=== PATIENT | female | born 1960 | race Caucasian/White ===

== ENCOUNTER → 2018-04-09 13:02 | Outpatient (CLI) | payer OTHER, SELFPAY ==
[2018-04-09 14:13] LABS: Hematocrit 40.7 % (37-47); Mean Corp Hgb Conc 31.9 g/gl (32-36); Mean Corpuscular Hgb 30.6 pg (27.0-32.0); Mean Corpuscular Volume 95.8 fL (81-99); Platelet Count 295 K/mm3 (150-450); RBC Distribution Width CV 13.8 % (11.6-14.6); RBC Distribution Width SD 47.9 fl (35.1-43.9); Red Blood Count 4.25 M/mm3 (4.2-5.4); Scan Indicated on CBC? Y/N NO; White Blood Count 5.9 K/mm3 (4.4-11.0)
[2018-04-09 14:45] LABS: Homocysteine 8.6 umol/L (3.2-10.7)
[2018-04-09 14:51] LABS: Progesterone Level 0.75 ng/mL (See Comment); Vitamin B12 1117 pg/mL (211-911); Vitamin D,25 Hydroxy 128.6 ng/mL (29.95-100.01)
[2018-04-09 15:24] LABS: ALB/GLOB Ratio 1.1 RATIO (0.9-2.4); AST(SGOT) 19 U/L (15-37); Alanine Aminotransfer ALT/SGPT 31 U/L (13-56); Albumin, Serum 4.1 g/dL (3.2-5.0); Alkaline Phosphatase 72 U/L (45-117); Anion Gap 5 (5-15); BUN 15 mg/dL (7-18); BUN/Creat Ratio 15.2 RATIO (10-20); CRP, High Sensitivity Cardiac 0.27 mg/L; Calcium,Total 9.2 mg/dL (8.5-10.1); Chloride 105 mmol/L (98-107); Cholesterol 217 mg/dL (200); Creatinine, Serum 0.99 mg/dL (0.55-1.02); EST Glomerular Filtration Rate 61 mL/min (>60); Est Glom Filt Rate - Afr Amer 74 mL/min (>60); Estradiol < 11.0 pg/mL; Follicle Stimulating Hormone 108.5 mIU/mL; Free T3 2.1 pg/mL (2.18-3.98); Globulin 3.6 g/dL (2.2-4.2); Glucose 70 mg/dL (74-106); High Density Lipoprotein 94 mg/dL; Iron 85 ug/dL (50-170); Luteinizing Hormone 31.3 mIU/mL; Magnesium 2.4 mg/dL (1.6-2.6); Potassium 3.9 mmol/L (3.5-5.1); Prolactin 9.1 ng/mL; Protein, Total 7.7 g/dL (6.4-8.2); Sodium Level 140 mmol/L (136-145); T4 Total, Thyroxin 9.8 ug/dL (4.8-13.9); Thyroid Stim Hormone (TSH) 1.78 uIU/mL (0.358-3.74); Triglycerides 98 mg/dL; Very Low Density Lipoprotein 20 mg/dL (5-40)
[2018-04-09 15:32] LABS: Hemoglobin A1c 6.3 % (4.2-6.3)
[2018-04-12 20:06] LABS: DHEA Sulfate 67.1 ug/dL (29.4-220.5); Insulin Like Growth Factor 126 ng/mL (46-172); Testosterone, % Free 1.29 % (0.50-2.80); Testosterone, Free 0.09 ng/dL (0.10-0.85); Testosterone, Total 7 ng/dL (3-41)
[2018-04-13 11:26] LABS: Sex Hormone-binding Globulin 96.1 nmol/L (17.3-125.0)
--- OUTSIDE RECORDS SUMMARY | 2018-06-14 09:35 | XMS RPT_ITS ---
:1960 Author Organization OHIP Care Team Providers Name Role Phone CURRY LUNSFORD PARMJITIR Attending Unavailable MANSOUR, LUNSFORD MONIR Referring Unavailable MANSOUR, LUNSFORD MONIR Referring Unavailable MANSOUR, LUNSFORD MONIR Referring Unavailable MANSOUR, LUNSFORD MONIR Referring Unavailable MANSOUR, LUNSFORD MONIR Referring Unavailable MANSOUR, LUNSFORD MONIR Referring Unavailable MANSOUR, LUNSFORD MONIR Referring Unavailable MANSOUR, LUNSFORD MONIR Referring Unavailable MANSOUR, LUNSFORD MONIR Referring Unavailable MANSOUR, LUNSFORD MONIR Attending Unavailable ANDRE MCDANIEL Attending Unavailable ANDRE MCDANIEL Referring Unavailable Christopher Flood Primary Care Unavailable MANSOUR, LUNSFORD M Attending Unavailable [facility] Referring Unavailable MANSOUR, LUNSFORD M Attending Unavailable [facility] Referring Unavailable MANSOUR, LUNSFORD M Referring Unavailable MANSOUR, LUNSFORD M Referring Unavailable MANSOUR, LUNSFORD M Referring Unavailable MANSOUR, LUNSFORD M Referring Unavailable MANSOUR, LUNSFORD M Referring Unavailable MANSOUR, LUNSFORD M Referring Unavailable MANSOUR, LUNSFORD M Referring Unavailable MANSOUR, LUNSFORD M Referring Unavailable MANSOUR, LUNSFORD M Referring Unavailable MANSOUR, LUNSFORD M Referring Unavailable MANSOUR, LUNSFORD M Attending Unavailable [facility] Referring Unavailable MANSOUR, LUNSFORD M Attending Unavailable MANSOUR, LUNSFORD M Referring Unavailable PROBLEMS PROBLEMS DATE TYPE CONDITION / CODE ATTENDING STATUS SOURCE 04/11/2018 Unknown R53.82 - Chronic ANDRE MCDANIEL Active [place] fatigue, Community unspecified / Hospital R53.82(ICD-10) Repository 04/11/2018 Unknown M62.81 - Muscle ANDRE MCDANIEL Active [place] weakness Community (generalized) / Hospital M62.81(ICD-10) Repository 12/10/2017 Admitting Unknown / NA Active [facility] Repository 10/15/2017 Active Unknown / CORY CHRISTIAN Active [facility] UNK(Unknown) MONIR Other [place] Repository PROCEDURES PROCEDURES No Procedure Records FoundRESULTS RESULTS CBC-COMPLETE BLOOD CNT Collected: 04/09/2018 Status: F Source: [place] NO DIFF 1:14 PM [facility] REPOSITORY TYPE CODE TESTS RESULT OUT OF RANGE REFERENCE UNITS LAB L100.1000 4.4-11.0 K/mm3 Normal WBC 5.9 LAB L100.1200 4.2-5.4 M/mm3 Normal RBC 4.25 LAB L100.1300 12.0-15.0 g/dl Normal HGB 13.0 LAB L100.1400 37-47 % Normal HCT 40.7 LAB L100.1500 81-99 fL Normal MCV 95.8 LAB L100.1600 27.0-32.0 pg Normal MCH 30.6 LAB L100.1700 32-36 g/gl Low MCHC 31.9 LAB L100.1810 11.6-14.6 % Normal RDW CV 13.8 LAB L100.1820 35.1-43.9 fl High RDW SD 47.9 LAB L100.1900 150-450 K/mm3 Normal PLT 295 LAB L100.2000 6.2-12.0 fl Normal MPV 10.0 Performed By: #### L100.0500 #### [facility] [address] [place], [place], [address] HOMOCYSTEINE Collected: 04/09/2018 Status: F Source: [place] 1:14 PM [facility] REPOSITORY TYPE CODE TESTS RESULT OUT OF REFERENCE UNITS RANGE LAB L503.8001 3.2-10.7 umol/L HOMOCYSTEINE Normal 8.6 Performed By: #### L503.8001 #### [facility] [address] [place], [address] VITAMIN B12 Collected: 04/09/2018 Status: F Source: [place] 1:14 PM [facility] REPOSITORY Order Comment: BASELINE OR POST MEDICATION STIMULATION?: Baseline Comments: PREGNENOLONE [id number] SERUM FROZEN TYPE CODE TESTS RESULT OUT OF REFERENCE UNITS RANGE LAB L503.0105 211-911 pg/mL High Vitamin B12 1117 Performed By: #### L503.0105, L506.1000, L509.4001, L509.6000 #### [facility] [address] [place], [address] VITAMIN D,25 HYDROXY Collected: 04/09/2018 Status: F Source: [place] 1:14 PM [facility] REPOSITORY Order Comment: BASELINE OR POST MEDICATION STIMULATION?: Baseline Comments: PREGNENOLONE [id number] SERUM FROZEN TYPE CODE TESTS RESULT OUT OF REFERENCE UNITS RANGE LAB L506.1000 29.95-100.01 ng/mL High Vitamin D 128.6 25-OH Result Comment: Vitamin D 25(OH) Status Range Deficiency <20 ng/mL (50nmol/L) Insuffciency 20 - 30 ng/mL (50 - 75 nmol/L) Sufficiency 30 - 100 ng/mL (75 - 250 nmol/L) Toxicity >100 ng/mL (>250 nmol/L) Evidence suggests that patients undergoing fluorescein dye angiography can retain small amounts of fluorescein in the body for up to 48 to 72 hours post-treatment. In the cases of patients with renal insufficiency, retention could be much longer. Samples containing fluorescein can produce falsely elevated values when tested with the Advia Centaur Vitamin D assay. With fluorescein interference, observed Vitamin D values can be as high as >150 ng/mL (>375 nmol/L). Samples should be resubmitted post fluorescein clearance to ensure there is no interference with Vitamin D test results. Performed By: #### L503.0105, L506.1000, L509.4001, L509.6000 #### [facility] [address] [place], [address] PROGESTERONE LEVEL Collected: 04/09/2018 Status: F Source: [place] 1:14 PM [facility] REPOSITORY Order Comment: BASELINE OR POST MEDICATION STIMULATION?: Baseline Comments: PREGNENOLONE [id number] SERUM FROZEN TYPE CODE TESTS RESULT OUT OF REFERENCE UNITS RANGE LAB L509.4001 See Comment ng/mL Progesterone Normal 0.75 Result Comment: Progesterone Reference Table: UNITS Female: Follicular 0.15 - 1.40 ng/mL Luteal 3.34 - 25.56 ng/mL Mid-luteal 4.44 - 28.03 ng/mL Postmenopausal 0.0 - 0.73 ng/mL : 1st Trimester 11.22 - 90.00 ng/mL 2nd Trimester 25.55 - 89.40 ng/mL 3rd Trimester 48.40 -422.50 ng/mL Performed By: #### L503.0105, L506.1000, L509.4001, L509.6000 #### [facility] [address] [place], [address] CORTISOL SERUM Collected: 04/09/2018 Status: F Source: [place] 1:14 PM [facility] REPOSITORY Order Comment: BASELINE OR POST MEDICATION STIMULATION?: Baseline Comments: PREGNENOLONE [id number] SERUM FROZEN TYPE CODE TESTS RESULT OUT OF RANGE REFERENCE UNITS LAB L509.6000 3.09-22.40 ug/dL Normal CORTISOL 9.50 Result Comment: Adult (AM) 4.30 - 22.40 ug/dL Adult (PM) 3.09 - 16.66 ug/dL Performed By: #### L503.0105, L506.1000, L509.4001, L509.6000 #### [facility] [address] [facility] [place], [place], [address] COMPREHENSIVE METABOLIC Collected: 04/09/2018 Status: F Source: [facility] 1:14 PM [facility] REPOSITORY Order Comment: PATIENT NOT FASTING Has Patient had X-rays with Contrast this admission? N Comments: PREGNENOLONE [id number] SERUM FROZEN Is Patient Taking Vitamins or Folic Acid Supplements? N TYPE CODE TESTS RESULT OUT OF RANGE REFERENCE UNITS LAB L501.0100 74-106 mg/dL Low GLU 70 Result Comment: Please note revised GLUCOSE reference range effective 2017. LAB L501.1000 7-18 mg/dL Normal BUN 15 LAB L501.1100 0.55-1.02 mg/dL Normal CREAT,SERUM 0.99 Result Comment: The validity of the calculated GFR AND GFRAA in patients over 70 years has not been determined. Clinical correlation is essential. LAB L501.1110 >60 mL/min Normal EST GFR 61 Result Comment: Non- GFR Calc LAB L501.1115 >60 mL/min Normal EST GFR - AA 74 Result Comment: GFR Calc LAB L501.1300 10-20 RATIO Normal BUN/CRE 15.2 LAB L501.1500 6.4-8.2 g/dL T Normal PROT 7.7 LAB L501.1800 3.2-5.0 g/dL Normal ALB 4.1 LAB L501.1950 2.2-4.2 g/dL Normal GLOB 3.6 LAB L501.2000 0.9-2.4 RATIO Normal A/G 1.1 LAB L501.2200 8.5-10.1 mg/dL CA Normal 9.2 LAB L501.4100 15-37 U/L Normal AST 19 LAB L501.4305 45-117 U/L Normal ALK P 72 LAB L501.4405 13-56 U/L Normal ALT 31 LAB L501.4600 0.20-1.00 mg/dL T Normal BILI 0.50 LAB L501.5300 136-145 mmol/L NA Normal 140 LAB L501.5600 3.5-5.1 mmol/L K Normal 3.9 LAB L501.5900 98-107 mmol/L CL Normal 105 LAB L501.6100 21.0-32.0 mmol/L Normal CO2 30.0 LAB L501.6200 5-15 Normal GAP 5 Performed By: #### L500.4050, L500.4100, L501.5200, L501.6750, L501.89828, L501.9310, L501.9520, L503.6150, L506.0250, L3100.5125, L3100.5170, L3100.5420, L3300.1750 #### [facility] [address] [place], [place], [id number] LIPID PROFILE Collected: 04/09/2018 Status: F Source: [place] 1:14 PM [facility] REPOSITORY Order Comment: PATIENT NOT FASTING Has Patient had X-rays with Contrast this admission? N Comments: PREGNENOLONE [id number] SERUM FROZEN Is Patient Taking Vitamins or Folic Acid Supplements? N TYPE CODE TESTS RESULT OUT OF RANGE REFERENCE UNITS LAB L501.4900 200 mg/dL High CHOL 217 Result Comment: <200 mg/dL Desirable 200-240 mg/dL Borderline >240 mg/dL High Risk LAB L501.5000 mg/dL Normal TRIG 98 Result Comment: The drugs N-Acetylcysteine and Metamizole may falsely depress this assay. Serum Triglycerides Reference Interval Normal <150 mg/dL Borderline high 150 - 199 mg/dL High 200 - 499 mg/dL Very High > or = 500 mg/dL LAB L501.6400 mg/dL Normal HDL 94 Result Comment: The drugs N-Acetylcysteine and Metamizole may falsely depress this assay. Reference Range HDL <40 mg/dL Low HDL Cholesterol HDL >or= 60 mg/dL High HDL Cholesterol LAB L501.6500 0-130 mg/dL Normal LDL 103 LAB L501.6600 5-40 mg/dL Normal VLDL 20 Performed By: #### L500.4050, L500.4100, L501.5200, L501.6750, L501.59195, L501.9310, L501.9520, L503.6150, L506.0250, L3100.5125, L3100.5170, L3100.5420, L3300.1750 #### [facility] [address] [place], [place], [id number] MAGNESIUM Collected: 04/09/2018 Status: F Source: [place] 1:14 PM [facility] REPOSITORY Order Comment: PATIENT NOT FASTING Has Patient had X-rays with Contrast this admission? N Comments: PREGNENOLONE [id number] SERUM FROZEN Is Patient Taking Vitamins or Folic Acid Supplements? N TYPE CODE TESTS RESULT OUT OF RANGE REFERENCE UNITS LAB L501.5200 1.6-2.6 mg/dL Normal MG 2.4 Performed By: #### L500.4050, L500.4100, L501.5200, L501.6750, L501.39833, L501.9310, L501.9520, L503.6150, L506.0250, L3100.5125, L3100.5170, L3100.5420, L3300.1750 #### [facility] [address] [place], [place], [id number] CRP, HIGH SENSITIVITY Collected: 04/09/2018 Status: F Source: [place] CARDIAC 1:14 PM [facility] REPOSITORY Order Comment: PATIENT NOT FASTING Has Patient had X-rays with Contrast this admission? N Comments: PREGNENOLONE [id number] SERUM FROZEN Is Patient Taking Vitamins or Folic Acid Supplements? N TYPE CODE TESTS RESULT OUT OF RANGE REFERENCE UNITS LAB L501.6750 mg/L Normal CRP HIGH 0.27 SENS Result Comment: Low Relative Risk of CVD <1.0 mg/L Average Relative Risk of CVD 1.0 - 3.0 mg/L High Relative Risk of CVD >3.0 mg/L Performed By: #### L500.4050, L500.4100, L501.5200, L501.6750, L501.03210, L501.9310, L501.9520, L503.6150, L506.0250, L3100.5125, L3100.5170, L3100.5420, L3300.1750 #### [facility] [address] [place], [place], [id number] FREE T3 Collected: 04/09/2018 Status: F Source: [place] 1:14 PM [facility] REPOSITORY Order Comment: PATIENT NOT FASTING Has Patient had X-rays with Contrast this admission? N Comments: PREGNENOLONE [id number] SERUM FROZEN Is Patient Taking Vitamins or Folic Acid Supplements? N TYPE CODE TESTS RESULT OUT OF RANGE REFERENCE UNITS LAB L501.04915 2.18-3.98 pg/mL Low FREE T3 2.1 Performed By: #### L500.4050, L500.4100, L501.5200, L501.6750, L501.68014, L501.9310, L501.9520, L503.6150, L506.0250, L3100.5125, L3100.5170, L3100.5420, L3300.1750 #### [facility] [address] [place], [place], [id number] T4 TOTAL, THYROXIN Collected: 04/09/2018 Status: F Source: [place] 1:14 PM [facility] REPOSITORY Order Comment: PATIENT NOT FASTING Has Patient had X-rays with Contrast this admission? N Comments: PREGNENOLONE [id number] SERUM FROZEN Is Patient Taking Vitamins or Folic Acid Supplements? N TYPE CODE TESTS RESULT OUT OF RANGE REFERENCE UNITS LAB L501.9310 4.8-13.9 ug/dL T4 Normal THYROXIN 9.8 Performed By: #### L500.4050, L500.4100, L501.5200, L501.6750, L501.97221, L501.9310, L501.9520, L503.6150, L506.0250, L3100.5125, L3100.5170, L3100.5420, L3300.1750 #### [facility] [address] [facility]. [place], [place], [id number] THYROID STIM HORMONE Collected: 04/09/2018 Status: F Source: [place] (TSH) 1:14 PM [facility] REPOSITORY Order Comment: PATIENT NOT FASTING Has Patient had X-rays with Contrast this admission? N Comments: PREGNENOLONE [id number] SERUM FROZEN Is Patient Taking Vitamins or Folic Acid Supplements? N TYPE CODE TESTS RESULT OUT OF RANGE REFERENCE UNITS LAB L501.9520 0.358-3.74 uIU/mL Normal TSH 1.78 Performed By: #### L500.4050, L500.4100, L501.5200, L501.6750, L501.56173, L501.9310, L501.9520, L503.6150, L506.0250, L3100.5125, L3100.5170, L3100.5420, L3300.1750 #### [facility] [address] [facility] [place], [place], [address] IRON Collected: 04/09/2018 Status: F Source: [place] 1:14 PM [facility] REPOSITORY Order Comment: PATIENT NOT FASTING Has Patient had X-rays with Contrast this admission? N Comments: PREGNENOLONE [id number] SERUM FROZEN Is Patient Taking Vitamins or Folic Acid Supplements? N TYPE CODE TESTS RESULT OUT OF RANGE REFERENCE UNITS LAB L503.6150 50-170 ug/dL Normal IRON 85 Performed By: #### L500.4050, L500.4100, L501.5200, L501.6750, L501.48561, L501.9310, L501.9520, L503.6150, L506.0250, L3100.5125, L3100.5170, L3100.5420, L3300.1750 #### [facility] [address] [place], [place], [id number] FOLATES, (FOLIC ACID) Collected: 04/09/2018 Status: F Source: [place] 1:14 PM [facility] REPOSITORY Order Comment: PATIENT NOT FASTING Has Patient had X-rays with Contrast this admission? N Comments: PREGNENOLONE [id number] SERUM FROZEN Is Patient Taking Vitamins or Folic Acid Supplements? N TYPE CODE TESTS RESULT OUT OF RANGE REFERENCE UNITS LAB L506.0250 3.1-55.4 ng/mL Normal FOLATES 30.40 Performed By: #### L500.4050, L500.4100, L501.5200, L501.6750, L501.46971, L501.9310, L501.9520, L503.6150, L506.0250, L3100.5125, L3100.5170, L3100.5420, L3300.1750 #### [facility] [address] [place], [place], [id number] FOLLICLE STIMULATING Collected: 04/09/2018 Status: F Source: [place] HORMONE 1:14 PM [facility] REPOSITORY Order Comment: PATIENT NOT FASTING Has Patient had X-rays with Contrast this admission? N Comments: PREGNENOLONE [id number] SERUM FROZEN Is Patient Taking Vitamins or Folic Acid Supplements? N TYPE CODE TESTS RESULT OUT OF RANGE REFERENCE UNITS LAB L3100.5125 mIU/mL Normal FSH 108.5 Result Comment: NORMAL REFERENCE RANGES FEMALE FOLLICULAR 2.3 - 12.6 mIU/mL MID-CYCLE PEAK 5.2 - 17.5 mIU/mL LUTEAL 1.7 - 12.9 mIU/mL POST-MENOPAUSAL ON MHT 5.9 - 72.8 mIU/mL NOT ON MHT 12.7 - 132.2 mlU/mL MALE 0.7 - 10.8 mIU/mL NEW TEST METHOD AND REFERENCE RANGES AUGUST 13, 2011 Performed By: #### L500.4050, L500.4100, L501.5200, L501.6750, L501.23542, L501.9310, L501.9520, L503.6150, L506.0250, L3100.5125, L3100.5170, L3100.5420, L3300.1750 #### [facility] [address] [place], [place], [id number] LUTEINIZING HORMONE Collected: 04/09/2018 Status: F Source: [place] 1:14 PM [facility] REPOSITORY Order Comment: PATIENT NOT FASTING Has Patient had X-rays with Contrast this admission? N Comments: PREGNENOLONE [id number] SERUM FROZEN Is Patient Taking Vitamins or Folic Acid Supplements? N TYPE CODE TESTS RESULT OUT OF RANGE REFERENCE UNITS LAB L3100.5170 mIU/mL Normal LH 31.3 Result Comment: NORMAL REFERENCE RANGES FEMALE FOLLICULAR 1.9 - 26.2 mIU/mL MID-CYCLE PEAK 22.8 - 76.1 mIU/mL LUTEAL 0.6 - 16.6 mIU/mL POST-MENOPAUSAL ON MHT 1.1 - 52.4 mIU/mL NOT ON MHT 8.6 - 61.8 mIU/mL MALE 1.2 - 10.6 mIU/mL NEW TEST METHOD AND REFERENCE RANGES AUGUST 13, 2011 Performed By: #### L500.4050, L500.4100, L501.5200, L501.6750, L501.01271, L501.9310, L501.9520, L503.6150, L506.0250, L3100.5125, L3100.5170, L3100.5420, L3300.1750 #### [facility] [address] [place], [place], [address] PROLACTIN Collected: 04/09/2018 Status: F Source: [place] 1:14 PM [facility] REPOSITORY Order Comment: PATIENT NOT FASTING Has Patient had X-rays with Contrast this admission? N Comments: PREGNENOLONE [id number] SERUM FROZEN Is Patient Taking Vitamins or Folic Acid Supplements? N TYPE CODE TESTS RESULT OUT OF RANGE REFERENCE UNITS LAB L3100.5420 ng/mL Normal PROLACTIN 9.1 Result Comment: NORMAL REFERENCE RANGES FEMALE NON- 2.2 - 30.3 ng/mL 8.1 - 347.6 ng/mL POST-MENOPAUSAL 0.7 - 31.5 ng/mL MALE 2.5 - 17.4 ng/mL NEW TEST METHOD AND REFERENCE RANGES AUGUST 13, 2011 Performed By: #### L500.4050, L500.4100, L501.5200, L501.6750, L501.74871, L501.9310, L501.9520, L503.6150, L506.0250, L3100.5125, L3100.5170, L3100.5420, L3300.1750 #### [facility] [address] [place], [place], [id number] ESTRADIOL Collected: 04/09/2018 Status: F Source: [place] 1:14 PM [facility] REPOSITORY Order Comment: PATIENT NOT FASTING Has Patient had X-rays with Contrast this admission? N Comments: PREGNENOLONE [id number] SERUM FROZEN Is Patient Taking Vitamins or Folic Acid Supplements? N TYPE CODE TESTS RESULT OUT OF RANGE REFERENCE UNITS LAB L3300.1750 pg/mL Normal ESTRADIOL < 11.0 Result Comment: NORMAL REFERENCE RANGES FEMALE FOLLICULAR 21.4 - 164.8 pg/mL MID-CYCLE PEAK 49.9 - 367.2 pg/mL LUTEAL 40.2 - 259.0 pg/mL POST-MENOPAUSAL ON MHT <11.0 - 462.1 pg/mL NOT ON MHT <11.0 - 58.3 pg/mL MALE <11.0 - 52.5 pg/mL NOTE: [facility] HAS CONFIRMED THE DRUG FULVETRANT (FASLODEX) MAY CAUSE FALSELY ELEVATED ESTRADIOL RESULTS WHEN USING THIS TEST METHOD. IF PATIENT IS TAKING FULVESTRANT AN ALTERNATIVE METHOD SHOULD BE USED TO DETERMINE ESTRADIOL CONCENTRATION. Performed By: #### L500.4050, L500.4100, L501.5200, L501.6750, L501.66060, L501.9310, L501.9520, L503.6150, L506.0250, L3100.5125, L3100.5170, L3100.5420, L3300.1750 #### [facility] [address] [place], [place], [address] HEMOGLOBIN A1C Collected: 04/09/2018 Status: F Source: [place] 1:14 PM [facility] REPOSITORY TYPE CODE TESTS RESULT OUT OF RANGE REFERENCE UNITS LAB L501.9985 4.2-6.3 % Normal HGB A1C 6.3 Performed By: #### L501.9985 #### [place] [facility] [place], [address] SEX HORMONE-BINDING Collected: 04/09/2018 Status: F Source: [place] GLOBULIN 1:14 PM [facility] REPOSITORY Order Comment: Has Patient had X-rays with Contrast this admission? N Comments: PREGNENOLONE [id number] SERUM FROZEN Has Patient had Radioactive Injection for X-ray?: N TYPE CODE TESTS RESULT OUT OF RANGE REFERENCE UNITS LAB L3100.5060 17.3-125.0 nmol/L Normal SHBG 96.1 Result Comment: Performed at: [facility] [address] [id number] Roving Weight Gauger: Cuate Maguire PhD, Phone: [phone] Performed at: [facility] [id number] Roving Weight Gauger: Anthony Coats MD, Phone: [phone] Performed By: #### L3100.5060, L3100.5310, L3300.1500, L3400.1350 #### [facility] (refer to report for specific site) refer to report for address and phone number TESTOSTERONE, TOTAL / Collected: 04/09/2018 Status: F Source: [place] FREE 1:14 PM [facility] REPOSITORY Order Comment: Has Patient had X-rays with Contrast this admission? N Comments: PREGNENOLONE [id number] SERUM FROZEN Has Patient had Radioactive Injection for X-ray?: N TYPE CODE TESTS RESULT OUT OF RANGE REFERENCE UNITS LAB L3100.5320 3-41 ng/dL Normal TESTOSTER,TOTAL 7 LAB L3100.5340 0.10-0.85 ng/dL Low TESTOSTER,FREE 0.09 LAB L3100.5360 0.50-2.80 % Normal TESTOSTER %FREE 1.29 Performed By: #### L3100.5060, L3100.5310, L3300.1500, L3400.1350 #### [facility] (refer to report for specific site) refer to report for address and phone number DHEA SULFATE Collected: 04/09/2018 Status: F Source: [place] 1:14 PM [facility] RE[facility]ORY Order Comment: Has Patient had X-rays with Contrast this admission? N Comments: PREGNENOLONE [id number] SERUM FROZEN Has Patient had Radioactive Injection for X-ray?: N TYPE CODE TESTS RESULT OUT OF RANGE REFERENCE UNITS LAB L3300.1500 29.4-220.5 ug/dL Normal DHEA SULF 67.1 4020 Performed By: #### L3100.5060, L3100.5310, L3300.1500, L3400.1350 #### [facility] (refer to report for specific site) refer to report for address and phone number INSULIN LIKE GROWTH Collected: 04/09/2018 Status: F Source: [place] FACTOR 1:14 PM [facility] RE[facility]ORY Order Comment: Has Patient had X-rays with Contrast this admission? N Comments: PREGNENOLONE [id number] SERUM FROZEN Has Patient had Radioactive Injection for X-ray?: N TYPE CODE TESTS RESULT OUT OF RANGE REFERENCE UNITS LAB L3400.1350 46-172 ng/mL Normal INSULIN 126 [id number] Performed By: #### L3100.5060, L3100.5310, L3300.1500, L3400.1350 #### [facility] (refer to report for specific site) refer to report for address and phone number MISCELLANEOUS LAB Collected: 04/09/2018 Status: F Source: [place] PROCEDURE 1:14 PM [facility] RE[facility]ORY Order Comment: Comments: PREGNENOLONE [id number] SERUM FROZEN Test(s) Ordered: PREGNENOLONE [id number] SERUM FROZEN TYPE CODE TESTS RESULT OUT OF RANGE REFERENCE UNITS LAB L801.1541 Normal [facility] TEST Result Comment: TEST RESULT UNITS REF INTERVAL Pregnenolone, MS 39 ng/dL Reference Range: Adults: <151 TESTING PERFORMED AT [facility]. ORIGINAL REPORT ON FILE IN LAB CONTAINS ADDITIONAL TEST SITE INFORMATION. Performed By: #### L801.1541 #### [facility] [address] [place], [address] PROGRESS Observed: 01/14/2018 Status: COMPLETED Source: [place] 4:25 PM CLINIC OTHER CAMPUS REPOSITORY O ID: [id number] Author: Cory [facility] Service: (none) Author Type: Physician Type: Progress Notes Filed: 01/14/2018 4:32 PM Note Text: Perla Solorio is a 57 year old female who presents for medication follow-up with self only . SUBJECTIVE: I finished PHP/IOP on 01/03/18. Doing fair. Still struggling. Discussed marital issues and lack of communications. Sleep is fair. Anxiety is high. Avoiding conflict with . Children are supportive. Discussed current medications style. Denies suicidal ideations. She wishes that would consider going to a PHP. Denies alcohol or drugs. Stable medically. Current Outpatient Prescriptions: lamoTRIgine (LAMICTAL) 100 mg tablet Take 1 tablet by mouth once daily. venlafaxine ER (EFFEXOR XR) 150 mg 24 hr capsule Take 1 capsule by mouth once daily. No current facility-administered medications for this visit. Discussed medication dosage, usage, goals of therapy, and side effects. ALLERGIES No Known Allergies No past medical history on file. No past surgical history on file. ROS: Review of Systems Constitutional: Positive for activity change and unexpected weight change. Psychiatric/Behavioral: Positive for confusion. The patient is nervous/anxious and is hyperactive. Social History Marital status: Spouse name: Years of education: Number of children: Social History Main Topics Smoking status: Never Smoker Smokeless tobacco: Never Used Alcohol use: Yes Drug use: No Sexual activity: No OBJECTIVE: BP 130/85 Pulse 80 Resp 16 Neurologic Exam MENTAL STATUS EXAMINATION: Appearance: Casually dressed Behavior: Behaves appropriately during the encounter, Notable behaviors include anxiety Social relatedness: Angry, Anxious/Nervousness and Irritable Speech/Language:The patient demonstrates appropriate tone, prosody, yesi, phonetics, and syntax Mood: depressed anxiety. Affect: Restricted and Inappropriately intense Orientation: Person, Place, Time and Situation Associations: Intact and linear Thought Content: appropriate to situation and rejections to sensitivity. Hallucinations: None Delusions: None Suicidal Ideation: No suicidal ideation, intent or plan. Homicidal Ideation: No homicidal ideation, intent or plan. Insight: Appropriate Judgment: Appropriate Little interest or pleasure in doing things 0 - Not at all Feeling down, depressed, or hopeless 0 - Not at all Trouble falling or staying asleep, or sleeping too much 0 - Not at all Feeling tired or having little energy 0 - Not at all Poor appetite or overeating 0 - Not at all Feeling bad about yourself - or that you are a failure or have let yourself or your family down 0 - Not at all Trouble concentrating on things, such as reading the newspaper or watching television 1 - Several days Moving or speaking so slowly that other people could have noticed. Or the opposite - being so fidgety or restless that you have been moving around a lot more than usual 0 - Not at all Thoughts that you would be better off , or of hurting yourself in some way 0 - Not at all If you checked off ANY problems, how DIFFICULT have these problems made it for you to do your work, take care of things at home, or get along with other people? Not difficult at all Interpretation of Total Score 1-4 Minimal depression ASSESSMENT: Severe episode of recurrent major depressive disorder, without psychotic features (hcc) (primary encounter diagnosis) Dysthymic disorder Personality disorder, unspecified (hcc) Generalized anxiety disorder still struggling but better than before admission to the program. PLAN: 1. continue same treatment. 2. Lamictal 100 mg daily at bedtime, venlafaxine ER 150 mg daily, 3. Follow-up in 2 months. Patient will encourage her to enroll in PHP they want better future for that marriage. PDMP website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 SOLORIO CSN: [id number] DATE OF : 1960 SEX/AGE: F/57 PATIENT TYPE: O HOSP SVC: LOCATION: DATE OF SERVICE: 12/31/2017 REFERRING PHYSICIAN: CORY CHRISTIAN LENGTH OF SESSION: 30 minutes. Discussed with staff in detail. Chart was reviewed. SUBJECTIVE: Doing fair. Mood is fair. Less conflicting with . They are not seeing eye to eye. Discussed marital relationship and options available to her. She gets irritated easily. Discussed coping skills and impulse control. Sleep is fair. Medications are helping. Communicating with the children better than with . SUBJECTIVE: Alert, oriented x3, in no acute distress. Casually groomed and kempt. Psychomotor activity is increased. Gait steady. Decreased eye contact. Mood is dysphoric. Affect is anxious. Speech is of normal rate and rhythm. Less anhedonic. Less anxious. No yahir or psychosis. Preoccupied with interpersonal difficulties. REVIEW OF SYSTEMS: Essentially unremarkable except above. PHYSICAL EXAMINATION: Vital signs are stable. Please refer to the chart. ASSESSMENT: 1. Major depression, severe, recurrent, F33.2. 2. Dysthymia. 3. Personality disorder, not otherwise specified, F60.4. CONDITION: Struggling. PLAN: 1. Continue same treatment. 2. Must work on coping. 3. Saturday through next week. Cory Christian MD Psychiatry MMM:modmilo /[id number] PROGRESS Observed: 12/30/2017 Status: COMPLETED Source: [place] 4:02 PM [facility] REPOSITORY [facility] ID: [id number] Author: Dustin Peacock Service: PARTIAL HOSPITALIZATION OP Author Type: Counselor Type: Progress Notes Filed: 12/30/2017 4:23 PM Note Text: IOP (INTENSIVE OUTPATIENT PROGRAM) PROGRESS NOTE FAMILY CALL Date of call: 12/30/17 Time of call: 4:02 pm Name and relationship of support person: Moises, patient's Report on how the patient has been doing in the home: stated Carmen, therapist called him last week inviting him to the family group. said he is uncertain about whether he is still allowed to come. Therapist encouraged him to come although stated he should speak with patient first to decide jointly. stated he is willing to come and therapist encouraged him to stay after family group if at all possible to meet with patient and Dr. Christian for an individual session. No other issues discussed at this time. SIGNATURE: Dustin Peacock LPC PATIENT NAME: Perla Solorio DATE: December 30, 2017 TIME: 4:18 PM PROGRESS Observed: 12/30/2017 Status: COMPLETED Source: [place] 9:00 AM [facility] OTHER TRAER REPOSITORY [facility] ID: [id number] Author: Dustin Peacock Service: Behavioral Health IOP (Intensive Outpatient Program) Author Type: Counselor Type: Progress Notes Filed: 12/30/2017 9:27 AM Note Text: IOP (INTENSIVE OUTPATIENT PROGRAM) PROGRESS NOTE SERVICE DATE: 12/26/2017 SERVICE TIME: 9:00 am BEHAVIOR: Appearance: Well Groomed Attitude: Appropriate Affect: Congruent Mood: Sad Orientation: WNL Thought: Preoccupied Speech: WNL Eye Contact: Good Describe Change Noted Throughout the Day: NA GROUP THERAPY: Process Therapy Start Time: 9:00 am Total Time: 60 minutes # of Patients: 7 THERAPEUTIC FOCUS: Discussed patient's emotions and behaviors from the previous day. Discussed what skills patient used. Patient identified goal they would like to reach in treatment today. Patient participated in brief mindfulness activity. PROBLEM(S) ADDRESSED: -Mental health issues INTERVENTIONS: Clarified, Engaged, Observed and Encouraged RESPONSE: Appears willing, attentive, engaged and motivated to work on self. No mention of suicidal thoughts or self-injury. Patient reports identifying anxiety when she comes home from work and awareness of her emotion in the present moment rather than after the fact. Patient was tearful during check-in but stated she is happy with her progress in identifying emotion. Patient is journaling emotions and this awareness is new to her after many years of therapy she stated, Patient describe feelings of apprehension and recognizes this centers around her home life. Patient is beginning to recognize discrepancies in how she feels and what her behaviors are in her relationships. PLAN: Patient to continue to participate in group therapy to work on meeting goals and objectives established in treatment plan. SIGNATURE: Dustin Peacock LPC PATIENT NAME: Perla Solorio DATE: December 30, 2017 TIME: 9:21 AM PROGRESS Observed: 12/27/2017 Status: COMPLETED Source: [place] 8:48 AM [facility] REPOSITORY [facility] ID: [id number] Author: Dustin Peacock Service: Behavioral Health IOP (Intensive Outpatient Program) Author Type: Counselor Type: Progress Notes Filed: 12/27/2017 8:49 AM Note Text: Date: 12/27/17 Time: 8:28 AM Suicide risk: low Update on patient was discussed in team: Excellent progress. High motivation. Reports benefitting from treatment. Team members present: Kenna Chi Amanda Baker PROGRESS Observed: 12/26/2017 Status: COMPLETED Source: [place] 12:30 PM CLINIC OTHER [facility] REPOSITORY [facility] ID: [id number] Author: Dustin Peacock Service: Behavioral Health IOP (Intensive Outpatient Program) Author Type: Counselor Type: Progress Notes Filed: 12/27/2017 9:32 AM Note Text: IOP (INTENSIVE OUTPATIENT PROGRAM) PROGRESS NOTE DAILY CLOSURE NOTE Date of Service:12/26/17 Time of Service: 12:30 pm Client states goal for weekend is to journal, say the serenity prayer, focus on herself. Therapist encouraged her to pamper herself in some manner and she was receptive.. Client states she safe for the weekend and has a plan to reach out to her friend Alice if she does not feel safe. SIGNATURE: Dustin Peacock LPC PATIENT NAME: Perla Solorio DATE: December 27, 2017 TIME: 9:27 AM PROGRESS Observed: 12/26/2017 Status: COMPLETED Source: [place] 10:15 AM CLINIC OTHER CAMPUS REPOSITORY [facility] ID: [id number] Author: Pam Rodriguez Lpc Service: Behavioral Health IOP (Intensive Outpatient Program) Author Type: Therapist Type: Progress Notes Filed: 12/26/2017 3:55 PM Note Text: IOP (INTENSIVE OUTPATIENT PROGRAM) PROGRESS NOTE SERVICE DATE: 12/26/2017 SERVICE TIME: 10:15 AM BEHAVIOR: Appearance: Well Groomed Attitude: Cooperative Affect: Appropriate Mood: Anxious and Pleasant Orientation: Oriented to person, place and time Thought:: Logical Speech: Normal Eye Contact: Good Describe Change Noted Throughout the Day: na GROUP THERAPY: Process Therapy with Art Start Time: 10:15 am Total Time: 60 minutes # of Patients: 7 THERAPEUTIC FOCUS: Development of appropriate coping skills to help reduce dysfunctional behaviors that result from triggers of daily life. Pt to participate in art therapy task, creating ?tree of strength?, with focus on one?s personal strengths, qualities, coping skills and supports. PROBLEM(S) ADDRESSED: -Mental health issues INTERVENTIONS: Engaged, Observed, Psychoeducation, Gave Feedback, Explored, Supported and Experiental Exercise RESPONSE: Pt participated in review of handout on personal strengths. Pt then completed art therapy task, created a tree of strength, exploring own strengths, qualities, support and coping skills. Pt recognized personal strengths, including her barney, persistence and love of learning. Appears active, attentive, engaged and participative. No mention of suicidal thoughts or self-injury. PLAN: Continue to use awareness and healthy coping to improve daily functioning. SIGNATURE: Sherif Stern LPC PATIENT NAME: Perla Solorio DATE: December 26, 2017 TIME: 3:51 PM PROGRESS Observed: 12/26/2017 Status: COMPLETED Source: [place] 12:00 AM CLINIC OTHER CAMPUS REPOSITORY [facility] ID: [id number] Author: Cory Christian Service: Psychiatry Author Type: Physician Type: Progress Notes Filed: 12/30/2017 10:09 AM Note Text: [facility] - Partial Hosp. Progress Note PATIENT NAME: PERLA SOLORIO CSN: [id number] DATE OF : 1960 SEX/AGE: F/57 PATIENT TYPE: O HOSP SVC: LOCATION: DATE OF SERVICE: 12/26/2017 REFERRING PHYSICIAN: CORY CHRISTIAN LENGTH OF SESSION: 30 minutes. Discussed with staff in detail. Chart was reviewed. SUBJECTIVE: Doing fair. Communicating better with her . They are not fighting or arguing. Discussed options available to them. They failed several couple therapy trials in the past. She is working long hours in the office. Discussed impulse control and anger management. Sleep is good. Communicating better with her children. Feels used and abused. OBJECTIVE: Alert and oriented x3, in no acute distress. Casually groomed and kempt. Psychomotor activity is increased. Gait steady. Decreased eye contact. Mood is anxious and affect is congruent. Speech is rapid and somewhat pressured. Thoughts are fairly organized. Still anhedonic and anxious. No yahir or psychosis. There is sense of victimization. Cognitive functions are fair. Insight and judgment are limited. Tolerates medication well without side effects. No suicidal ideations, intention, or plan. No acting out. PHYSICAL EXAMINATION: Vital signs are stable. Please refer to the chart. REVIEW OF SYSTEMS: Essentially unremarkable except above. ASSESSMENT: 1. Major depression, severe, recurrent, F33.2. 2. Dysthymia. 3. Personality disorder, not otherwise specified. CONDITION: Fair. PLAN: 1. Continue same treatment. 2. She will come to [facility] 2 days next week. 3. Discharge planning. Cory Christian MD Psychiatry MMM:josé miguel /[id number] PROGRESS Observed: 12/24/2017 Status: COMPLETED Source: [place] 2:32 PM CLINIC OTHER CAMPUS REPOSITORY [facility] ID: [id number] Author: Dustin Peacock Service: Behavioral Health IOP (Intensive Outpatient Program) Author Type: Counselor Type: Progress Notes Filed: 12/25/2017 11:12 AM Note Text: IOP (INTENSIVE OUTPATIENT PROGRAM) PROGRESS NOTE SERVICE DATE: 12/24/2017 SERVICE TIME: 11:15 am BEHAVIOR: Appearance: Well Groomed Attitude: Cooperative Affect: Appropriate and Sad Mood: Depressed and Anxious Orientation: Oriented to person, place and time Thought:: Logical Speech: Normal Eye Contact: Good Describe Change Noted Throughout the Day: NA GROUP THERAPY: Process Therapy Start Time: 11:30 am Total Time: 60 minutes # of Patients: 6 THERAPEUTIC FOCUS: Development of appropriate coping skills to help reduce dysfunctional behaviors that result from triggers of daily life. Patients to discuss and explore how to use coping skills with their current mood and behavioral disorders. PROBLEM(S) ADDRESSED: -Mental health issues INTERVENTIONS: Engaged, Observed, Encouraged, Challenged, Gave Feedback, Explored, Supported and Discussion around how thoughts, emotions, body sensations and behaviors interplay. RESPONSE: Appears active, attentive, engaged, participative and willing. No mention of suicidal thoughts or self-injury. Patient identified body sensations as being a necessary part of recognizing emotions. Excellent insight. Patient discussed handout from previous group and how her emotions have been stuffed for years. Patient is continuing to allow herself to feel sad and states that sometimes when she is sad she can't find her words. Patient discussed body language and how others impacts her when it is incongruent with their messages. Patient became tearful regarding her marital conflict. Patient asked to speak with therapist regarding triggers she is experiencing and therapist stated she could meet with patient following group. PLAN: To continue to attend group therapy to work on meeting the objectives and goals in the treatment plan. Therapist to meet with patient for one one one session following group. SIGNATURE: Dustin Peacock LPC PATIENT NAME: Perla Solorio DATE: December 24, 2017 TIME: 2:33 PM PROGRESS Observed: 12/24/2017 Status: COMPLETED Source: [place] 12:30 PM CLINIC OTHER CAMPUS REPOSITORY [facility] ID: [id number] Author: Dustin Peacock Service: Behavioral Health IOP (Intensive Outpatient Program) Author Type: Counselor Type: Progress Notes Filed: 12/24/2017 2:43 PM Note Text: Patient confirmed she feels safe at this time and agrees to engage in self-care this evening. PROGRESS Observed: 12/24/2017 Status: COMPLETED Source: [place] 10:15 AM [facility] REPOSITORY [facility] ID: [id number] Author: Pam Rodriguez Lpc Service: Behavioral Health IOP (Intensive Outpatient Program) Author Type: Therapist Type: Progress Notes Filed: 12/24/2017 2:03 PM Note Text: IOP (INTENSIVE OUTPATIENT PROGRAM) PROGRESS NOTE SERVICE DATE: 12/24/2017 SERVICE TIME: 10:15 AM BEHAVIOR: Appearance: Well Groomed Attitude: Cooperative Affect: Appropriate Mood: Pleasant and anxious Orientation: Oriented to person, place and time Thought:: Logical Speech: Normal Eye Contact: Good Describe Change Noted Throughout the Day: na GROUP THERAPY: Process and Education Start Time: 10:15 am Total Time: 60 minutes # of Patients: 5 THERAPEUTIC FOCUS: Emotions and their purpose PROBLEM(S) ADDRESSED: -Mental health issues INTERVENTIONS: Engaged, Observed, Psychoeducation, Gave Feedback, Explored and Supported RESPONSE: Pt participated in education, reading of handout/ discussion on the purpose of emotions. Pt becoming more aware that anxiety may be secondary emotion to anger due to lack of healthy boundaries and assertiveness. Appears attentive, engaged and participative. No mention of suicidal thoughts or self-injury. PLAN: Continue to use awareness and healthy coping to improve daily functioning. SIGNATURE: Sherif Stern LPC PATIENT NAME: Perla Solorio DATE: December 24, 2017 TIME: 1:56 PM PROGRESS Observed: 12/24/2017 Status: COMPLETED Source: [place] 9:10 AM [facility] REPOSITORY [facility] ID: [id number] Author: Lea (Therapist) Pam Alas Service: Behavioral Health IOP (Intensive Outpatient Program) Author Type: Therapist Type: Progress Notes Filed: 12/24/2017 4:20 PM Note Text: IOP PROGRESS NOTE SERVICE DATE: 12/24/2017 SERVICE TIME: 9AM BEHAVIOR: Appearance: Pleasant Attitude: Cooperative Affect: Angry/hostile/pleasant Mood: Irritable and Pleasant Orientation: Oriented to person, place and time Thought:: Logical Speech: Normal Eye Contact: Good Describe Change Noted Throughout the Day: na GROUP THERAPY: Process Therapy Start Time: 9:00 am Total Time: 60 minutes # of Patients: 7 THERAPEUTIC FOCUS: Discussed patient's emotions and behaviors from the previous day. Discussed what skills patient used. Patient identified goal they would like to reach in treatment today. Patient participated in brief mindfulness activity. PROBLEM(S) ADDRESSED: -Mental health issues -Family Problems and/or issues with marital relationship and/or primary support group INTERVENTIONS: Engaged, Encouraged, Explored, Supported and Active Listening RESPONSE: Appears attentive, participative and willing. No mention of suicidal thoughts or self-injury. Patient spoke about feeling angry about a boundary issue with and wanting to work on asserting her boundaries with him today. She spoke about keeping her boundary simple, clear, and being a broken record when subject is changed. She used skills to journal, identify emotions, self-care, and internal boundary work. She spoke about wanting to communicate her thoughts and feelings without the fear of saying it wrong PLAN: continue with IOP per tx plan SIGNATURE: Lea Alas Therapist PATIENT NAME: Perla Solorio DATE: December 24, 2017 TIME: 4:17 PM PROGRESS Observed: 12/24/2017 Status: COMPLETED Source: [place] 12:00 AM CLINIC OTHER CAMPUS REPOSITORY [facility] ID: [id number] Author: Cory Christian Service: Psychiatry Author Type: Physician Type: Progress Notes Filed: 12/29/2017 10:39 AM Note Text: [facility] - Partial Hosp. Progress Note PATIENT NAME: PERLA SOLORIO CSN: [id number] DATE OF : 1960 SEX/AGE: F/57 PATIENT TYPE: O HOSP SVC: LOCATION: DATE OF SERVICE: 12/24/2017 REFERRING PHYSICIAN: CORY CHRISTIAN LENGTH OF SESSION: 30 minutes. Discussed with staff in detail. SUBJECTIVE: Doing fair. Still struggling. Some of the staff in the office flew to a conference and they are left alone to carry on the load. She is overwhelmed. Discussed coping skills and impulse control. Getting along better with . No overt confrontation. Sleep is fair. Compliant with medicine. Denies suicidal ideations. No panic, but there is some anxiety. OBJECTIVE: Alert and oriented x3, in no acute distress. Casually groomed and kempt. Psychomotor activity is increased. Decreased eye contact. Wearing a tank top. Psychomotor activity is increased. Mood is dysphoric and affect is anxious. Speech is rapid, but not pressured. Thoughts are fairly organized. More anhedonic and anxious. Preoccupied with interpersonal difficulties. There is sense of victimization. No yahir or psychosis. Cognitive function are the same. Insight and judgment are limited. Attention and concentration are decreased. Tolerates medication fairly without side effects. No suicidal ideations, intention, or plan. No acting out. REVIEW OF SYSTEMS: Essentially unremarkable except above. PHYSICAL EXAMINATION: Vital signs are stable. ASSESSMENT: 1. Major depression, severe, recurrent, F33.2. 2. Dysthymia. 3. Personality disorder, not otherwise specified, F60.9. CONDITION: Still struggling. PLAN: 1. Continue same treatment. 2. Must work on coping. 3. We will choose another day this week to come instead of Saturday. Cory Christian MD Psychiatry MMM:modl /[id number] PROGRESS Observed: 12/20/2017 Status: COMPLETED Source: [place] 12:30 PM [facility] REPOSITORY [facility] ID: [id number] Author: Sherif Stern Therapist Service: Behavioral Health IOP (Intensive Outpatient Program) Author Type: Therapist Type: Progress Notes Filed: 12/20/2017 1:21 PM Note Text: DAILY CLOSURE NOTE Date of Service:12/20/17 Time of Service:12:30 Client states goal for evening is read books on love, codependency, attend [facility], AA meetings. Takeaway- helpful to relate to group member exploring own needs and boundaries. Client states they are safe for the evening and has a plan to reach out to if they do not feel safe. PROGRESS Observed: 12/20/2017 Status: COMPLETED Source: [place] 11:20 AM [facility] REPOSITORY [facility] ID: [id number] Author: Sherif Stern Therapist Service: Behavioral Health IOP (Intensive Outpatient Program) Author Type: Therapist Type: Progress Notes Filed: 12/20/2017 1:28 PM Note Text: IOP (INTENSIVE OUTPATIENT PROGRAM) PROGRESS NOTE SERVICE DATE: 12/20/2017 SERVICE TIME: 11:20 AM BEHAVIOR: Appearance: Well Groomed Attitude: Cooperative Affect: Appropriate Mood: Pleasant Orientation: Oriented to person, place and time Thought:: Logical Speech: Normal Eye Contact: Good Describe Change Noted Throughout the Day: na GROUP THERAPY: Process Therapy with Art Start Time: 11:20 am Total Time: 60 minutes # of Patients: 6 THERAPEUTIC FOCUS: Development of appropriate coping skills to help reduce dysfunctional behaviors that result from triggers of daily life. Pt participated in mindful beading activity and discussion. PROBLEM(S) ADDRESSED: -Mental health issues INTERVENTIONS: Engaged, Observed, Psychoeducation, Gave Feedback, Explored and Experiental Exercise RESPONSE: Pt given brief education on health benefits of creativity / mindful beading and created jewelry. Pt shared the jewelry served as a reminder of what she has overcome and her capacity for growth. Appears active, attentive, engaged and participative. No mention of suicidal thoughts or self-injury. PLAN: Continue to use awareness and healthy coping to improve daily functioning. SIGNATURE: Sherif Stern LPC PATIENT NAME: Perla Solorio DATE: December 20, 2017 TIME: 1:22 PM PROGRESS Observed: 12/20/2017 Status: COMPLETED Source: [place] 10:15 AM CLINIC OTHER CAMPUS REPOSITORY [facility] ID: [id number] Author: Dustin Peacock Service: Behavioral Health IOP (Intensive Outpatient Program) Author Type: Counselor Type: Progress Notes Filed: 12/20/2017 12:52 PM Note Text: PHP (PARTIAL HOSPITALIZATION PROGRAM) PROGRESS NOTE SERVICE DATE: 12/20/2017 SERVICE TIME: 10:15 am ? BEHAVIOR: Appearance: Well Groomed Attitude: Cooperative Affect: Euthymic Mood: Pleasant Orientation: Oriented to person, place and time Thought: Attentive Speech: Normal Eye Contact: Good Describe Change Noted Throughout the Day: NA ? GROUP THERAPY: Process Therapy Start Time: 10:15 am Total Time: 60 minutes # of Patients: 6 ? THERAPEUTIC FOCUS: Empty Chair Technique: Development of appropriate coping skills to help reduce dysfunctional behaviors that result from triggers of daily life. Patients to discuss and explore how to use coping skills with their current mood and behavioral disorders. Group processed their own personal meanings of love. ? PROBLEM(S) ADDRESSED: -Mental health issues -Family Problems and/or issues with marital relationship and/or primary support group ? INTERVENTIONS: Engaged, Encouraged, Redirected, Gave Feedback, Explored, Supported, Active Listening and Experiental Exercise ? RESPONSE: Appears active, attentive, participative and willing. No mention of suicidal thoughts or self-injury. Patient provided feedback to a peer sharing how she is working on feeling sadness in her relationship and recognizing her avoidance. Patient gave excellent, self-directed feedback multiple times and was active in the group without being prompted. Patient is exploring emotions she has suppressed and determining that her fear has prevented her from taking actions she could take to have closer relationships. Some insight. Patient is taking responsibilty for her own behaviors and choices. Patient continues to be open to treatment process and seems motivated. Patient is ambivalent about returning to 12 step programs but identified two nights that she could go to [facility]. PLAN: To continue to participate in group therapy to meet individual goals on treatment plan. SIGNATURE: Dustin Peacock LPC PATIENT NAME: Perla Solorio DATE: December 20, 2017 TIME: 12:24 PM PROGRESS Observed: 12/20/2017 Status: COMPLETED Source: [place] 9:00 AM CLINIC OTHER CAMPUS REPOSITORY [facility] ID: [id number] Author: Sherif Villegas) Pam Stern Service: Behavioral Health IOP (Intensive Outpatient Program) Author Type: Therapist Type: Progress Notes Filed: 12/20/2017 11:34 AM Note Text: IOP (INTENSIVE OUTPATIENT PROGRAM) PROGRESS NOTE SERVICE DATE: 12/20/2017 SERVICE TIME: 9 AM BEHAVIOR: Appearance: Pleasant Attitude: Cooperative Affect: Anxious/tense Mood: Anxious and Pleasant Orientation: Oriented to person, place and time Thought:: Logical ,some distortions Speech: Normal Eye Contact: Good Describe Change Noted Throughout the Day: na GROUP THERAPY: Process Therapy Start Time: 9:00 am Total Time: 60 minutes # of Patients: 6 THERAPEUTIC FOCUS: Discussed patient's emotions and behaviors from the previous day. Discussed what skills patient used. Patient identified goal they would like to reach in treatment today. Patient participated in brief mindfulness activity. PROBLEM(S) ADDRESSED: -Mental health issues -Family Problems and/or issues with marital relationship and/or primary support group INTERVENTIONS: Engaged, Observed, Gave Feedback, Explored, Increase problem-solving skills for coping with urges and for making effective choices. and Integrate distress tolerance skills into activities of daily living. RESPONSE: Pt reports moderate mood, acting on urge to gossip. Group discussed how gossip relates to self and insecurities, pt was open to feedback. Pt reports using reading, breathing, mindful awareness to cope. Goal today is to absorb as much as possible from program. Appears attentive, engaged and participative. No mention of suicidal thoughts or self-injury. PLAN: Continue to use awareness and healthy coping to improve daily functioning. SIGNATURE: Sherif Stern LPC PATIENT NAME: Perla Solorio DATE: December 20, 2017 TIME: 11:30 AM PROGRESS Observed: 12/20/2017 Status: COMPLETED Source: [place] 12:00 AM CLINIC OTHER CAMPUS REPOSITORY [facility] ID: [id number] Author: Cory Christian Service: Psychiatry Author Type: Physician Type: Progress Notes Filed: 12/23/2017 10:57 AM Note Text: [facility] - Partial Hosp. Progress Note PATIENT NAME: PERLA SOLORIO CSN: [id number] DATE OF : 1960 SEX/AGE: F/57 PATIENT TYPE: O HOSP SVC: LOCATION: DATE OF SERVICE: 12/20/2017 REFERRING PHYSICIAN: Cory Christian MD LENGTH OF SESSION: 30 minutes. Discussed with staff in detail. Chart was reviewed. SUBJECTIVE: Doing fair. Left on Saturday early before she was seen. Discussed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 LEMMONDOB: [facility] LEMMONDOB: [employer]Policy [id number] N Number: Repository [place] [id number] [place] Date: [address]Ahp: (HP) 12/31/2017 [facility] Primary Insurance:MMO SHERI LEMMONDOB: [facility] LEMMONDOB: [employer]Policy [id number] N Number: Repository [place] [id number] [place] Date: [address]Ilp: (HP) 12/26/2017 [facility] Primary Insurance:MMO SHERI LEMMONDOB: [facility] LEMMONDOB: [employer]Policy [id number] N Number: Repository [place] [id number] [place] Date: [address]Rqv: (HP) 12/24/2017 [facility] Primary Insurance:MMO SHERI LEMMONDOB: [facility] LEMMONDOB: [employer]Policy [id number] N Number: Repository [place] [id number] [place] Date: [address]Ctu: (HP) 12/20/2017 [facility] Primary Insurance:MMO SHERI LEMMONDOB: [facility] LEMMONDOB: [employer]Policy [id number] N Number: Repository [place] [id number] [place] Date: [address]Loc: (HP) 12/17/2017 [facility] Primary Insurance:MMO SHERI LEMMONDOB: [facility] LEMMONDOB: [employer]Policy [id number] N Number: Repository [place] [id number] [place] Date: [address]Dgd: (HP) 12/13/2017 [place] Primary Insurance:MMO SHERI LEMMONDOB: [facility] LEMMONDOB: [employer]Policy [id number] N Number: Repository [place] [id number] [place] Date: [address]Ole: (HP) 12/10/2017 [place] Primary Insurance:MMO SHERI LEMMONDOB: [facility] LEMMONDOB: SU[employer] PLUSPolicy [id number] N Number: Repository [place] [id number] [place] Date: [address]Hjh: (HP) 10/15/2017 [facility] Primary Insurance:MMO SHERI LEMMONDOB: [facility] LEMMONDOB: SU[employer] PLUS [id number] N BHPolicy Number: Repository [place] [id number] [place], [place] Date: [address]Blu: (HP) 09/05/2017 [place] Primary Insurance:[facility] SHERI MOLINAOB: [facility] LEMLUIS DANIELOB: SU[employer] PLUS [id number] N BHPolicy Number: Repository [place] [id number] [place] Date: [address]Bhi: (HP)
== END ==
PROVIDERS: Family Provider Family Medicine; PCP Family Medicine
DX: M62.81 Muscle weakness (generalized) (principal); R53.82 Chronic fatigue, unspecified
CPT/HCPCS: 36415; 80053; 80061; 82306; 82533; 82607; 82627; 82670; 82746; 83001; 83002; 83036; 83090; 83540; 83735; 84144; 84146; 84270; 84305; 84402; 84403; 84436; 84443; 84481; 85027; 86141; 82626

== ENCOUNTER → 2019-02-11 12:16 | Outpatient (CLI) | payer OTHER, SELFPAY ==
[2019-02-11 13:58] LABS: Absolute Lymphocyte Count 2.35 X10^3/uL (0.83-4.51); Basophil# 0.03 X10^3/uL; Basophil% 0.5 % (0-1); Eosinophils% 3.3 % (0-5); Hematocrit 42.8 % (37-47); Lymphocyte # 2.35 X10^3/ul (4.0); Lymphocyte % 38.6 % (19-41); Mean Corp Hgb Conc 32.7 g/dL (32-36); Mean Corpuscular Hgb 31.5 pg (27.0-32.0); Mean Corpuscular Volume 96.4 fL (81-99); Monocyte# 0.55 X10^3/uL; NRBC Flagged by Analyzer 0 % (0-5); Neutrophil # 2.95 X10^3/uL (2.7-7.7); Neutrophil % 48.4 % (47-70); Platelet Count 284 K/mm3 (150-450); RBC Distribution Width CV 12.6 % (11.6-14.6); RBC Distribution Width SD 44.8 fl (35.1-43.9); Red Blood Count 4.44 M/mm3 (4.2-5.4); White Blood Count 6.1 K/mm3 (4.4-11.0)
[2019-02-11 14:13] LABS: Hemoglobin A1c 5.4 % (4.2-6.3)
[2019-02-11 14:16] LABS: ALB/GLOB Ratio 1.2 RATIO (0.9-2.4); AST(SGOT) 19 U/L (15-37); Alanine Aminotransfer ALT/SGPT 31 U/L (13-56); Albumin, Serum 4.3 g/dL (3.2-5.0); Alkaline Phosphatase 83 U/L (45-117); Anion Gap 9 (5-15); BUN 19 mg/dL (7-18); BUN/Creat Ratio 26.5 RATIO (10-20); CRP, High Sensitivity Cardiac 0.52 mg/L; Calcium,Total 9.4 mg/dL (8.5-10.1); Chloride 102 mmol/L (98-107); Cholesterol 218 mg/dL (200); Creatinine, Serum 0.72 mg/dL (0.55-1.02); EST Glomerular Filtration Rate 88 mL/min (>60); Est Glom Filt Rate - Afr Amer 107 mL/min (>60); Globulin 3.5 g/dL (2.2-4.2); Glucose 102 mg/dL (74-106); High Density Lipoprotein 86 mg/dL; Potassium 3.8 mmol/L (3.5-5.1); Protein, Total 7.8 g/dL (6.4-8.2); Sodium Level 139 mmol/L (136-145); Thyroid Stim Hormone (TSH) 0.64 uIU/mL (0.358-3.74); Triglycerides 81 mg/dL; Very Low Density Lipoprotein 16 mg/dL (5-40)
[2019-02-13 12:07] LABS: Red Blood Cell Count Test/G6PD 4.44 x10E6/uL (3.77-5.28)
[2019-02-13 16:22] LABS: G6PD Quant Test 277 (146-376)
== END ==
PROVIDERS: Family Provider Family Medicine; PCP Family Medicine; Referring Provider Nurse Practitioner Family; Visit Provider Nurse Practitioner Family
DX: M62.81 Muscle weakness (generalized) (principal); R53.82 Chronic fatigue, unspecified
CPT/HCPCS: 36415; 80053; 80061; 82955; 83036; 84443; 85025; 86141

== ENCOUNTER → 2019-07-06 17:05 | Outpatient (CLI) | payer OTHER, SELFPAY ==
[2019-07-06 18:38] LABS: Free T3 1.9 pg/mL (2.18-3.98); T4 Total, Thyroxin 6.3 ug/dL (4.8-13.9); Thyroid Stim Hormone (TSH) 1.58 uIU/mL (0.358-3.74)
[2019-07-07 07:37] LABS: T4 Free Direct 0.66 ng/dL (0.76-1.46)
== END ==
PROVIDERS: PCP Family Medicine; Referring Provider Nurse Practitioner Family; Visit Provider Nurse Practitioner Family
DX: E03.9 Hypothyroidism, unspecified (principal); R53.82 Chronic fatigue, unspecified
CPT/HCPCS: 36415; 84436; 84439; 84443; 84481

== ENCOUNTER → 2021-02-06 14:08 | Outpatient (CLI) | payer OTHER, SELFPAY ==
[2021-02-12 10:09] LABS: HPV APTIMA, High Risk Negative (Negative)
== END ==
PROVIDERS: PCP Family Medicine; Visit Provider Obstetrics & Gynecology
DX: Z12.4 Encounter for screening for malignant neoplasm of cervix (principal)
CPT/HCPCS: 87624; 88175; G0145

== ENCOUNTER → 2021-03-06 13:42 | Outpatient (CLI) | payer OTHER, SELFPAY ==
--- NOTE | 2021-03-06 13:45 | BI_ITS ---
MAMMOGRAPHY - BILATERAL SCREENING REASON FOR EXAM: Female, 60 years old. Routine annual screening examination. PERTINENT HISTORY: Non-contributory. TECHNIQUE: Digital bilateral breast ray (3D mammographic acquisition) in the CC and MLO projections. 2-D mediolateral oblique (MLO) and craniocaudad (CC) views of both breasts were obtained. CAD: Full Field Digital Mammography with Computer Added Detection was performed. COMPARISON: Comparison is made with prior examination dated 02/09/2008. FINDINGS: Breast Composition: The breasts are heterogeneously dense, which may obscure small masses. There are no dominant masses or suspicious calcifications. Stable small benign-appearing bilateral axillary lymph nodes. No other significant abnormalities are identified. There has been no significant change since the prior study. BI/SCRN MAMM (CAD)W/RAY BILAT IMPRESSION: Stable bilateral screening mammogram. Yearly follow-up mammogram recommended. (A) ASSESSMENT CATEGORY: BIRADS Category 2: Benign. A letter regarding these results will be sent to the patient by the facility within 30 days. Approximately 10% of breast cancers are not detected by mammography. A normal mammogram should not delay biopsy of a clinically suspicious abnormality. [id number] Electronically Signed: Negro Daniels MD at 14:40 EST , Service support ,
== END ==
PROVIDERS: PCP Family Medicine; Referring Provider Obstetrics & Gynecology; Visit Provider Obstetrics & Gynecology
DX: Z12.31 Encounter for screening mammogram for malignant neoplasm of breast (principal)
CPT/HCPCS: 77063; 77067

== ENCOUNTER → 2022-06-18 | Outpatient (CLI) | payer OTHER, SELFPAY ==
[2022-06-18 15:27] LABS: Absolute Lymphocyte Count 2.39 X10^3/uL (0.83-4.51); Absolute Neutrophil Count 2.7 X10^3/uL (2.0-7.7); Basophil# 0.05 X10^3/uL; Basophil% 0.9 % (0-1); Eosinophil# 0.11 X10^3/uL; Eosinophils% 1.9 % (0-5); Hematocrit 42.6 % (37-47); Hemoglobin 13.9 g/dL (12.0-15.0); Lymphocyte # 2.39 X10^3/ul (0.83-4.51); Lymphocyte % 41.2 % (19-41); Mean Corp Hgb Conc 32.6 g/dL (32-36); Mean Corpuscular Volume 97.9 fL (81-99); Mean Platelet Vol. 9.5 fl (6.2-12.0); Monocyte# 0.53 X10^3/uL; Monocyte% 9.1 % (0-10); NRBC Flagged by Analyzer 0 % (0-5); Neutrophil # 2.71 X10^3/uL (2.7-7.7); Neutrophil % 46.7 % (47-70); Platelet Count 379 K/mm3 (150-450); RBC Distribution Width CV 13.6 % (11.6-14.6); RBC Distribution Width SD 49.1 fl (35.1-43.9); Red Blood Count 4.35 M/mm3 (4.2-5.4); White Blood Count 5.8 K/mm3 (4.4-11.0)
[2022-06-18 15:54] LABS: Anion Gap 5 (5-15); BUN 14 mg/dL (7-18); BUN/Creat Ratio 17.8 RATIO (10-20); Chloride 103 mmol/L (98-107); Cholesterol 245 mg/dL (200); Creatinine, Serum 0.79 mg/dL (0.55-1.02); EST Glomerular Filtration Rate 78 mL/min (>60); Est Glom Filt Rate - Afr Amer 95 mL/min (>60); Glucose 95 mg/dL (74-106); High Density Lipoprotein 86 mg/dL; Potassium 4.4 mmol/L (3.5-5.1); Sodium Level 136 mmol/L (136-145); Thyroid Stim Hormone (TSH) 2.87 uIU/mL (0.358-3.74); Triglycerides 59 mg/dL; Very Low Density Lipoprotein 12 mg/dL (5-40)
[2022-06-18 16:23] LABS: Hemoglobin A1c 5.1 % (3.8-5.6)
== END | disposition home or self-care (01) ==
LOC: MTLAB 11:12
PROVIDERS: PCP Family Medicine
DX: F33.1 Major depressive disorder, recurrent, moderate (principal); Z79.899 Other long term (current) drug therapy
CPT/HCPCS: 36415; 80048; 80061; 83036; 84443; 85025